=== PATIENT | female | born 1970 | race Two or more races ===

== ENCOUNTER 2021-10-31 17:15 | Emergency (ER) | payer OTHER ==
[2021-10-31 17:35] VITALS: BP 132/82; PULSE 88; TEMP 98; BMI 29.2
[2021-10-31] MEDS: ALBUTEROL SO4 2.5/IPRATROPIUM 0.5 INH SOL 3 ML VIAL.NEB. NEB SCH ×2 (19:00→19:04)
== END 2021-10-31 20:28 | disposition home or self-care (01) ==
LOC: JER 17:15
PROC: 3E0F7GC Introduction of Other Therapeutic Substance into Respiratory Tract, Via Natural or Artificial Opening (ICD-10-PCS; principal; 2021-10-31)
DX: J06.9 Acute upper respiratory infection, unspecified (principal); Z11.52 Encounter for screening for COVID-19
CPT/HCPCS: 87804; 87807; 99283-25; C9803; U0003; U0005